=== PATIENT | female | born 1965 | race Caucasian/White ===

== ENCOUNTER → 2018-03-25 16:38 | Outpatient (CLI) | payer OTHER, SELFPAY ==
--- NOTE | 2018-03-25 16:45 | MM_ITS ---
MM Dig screening mamm BI w/CAD CAD Screening ORDERING PHYSICIAN : Blanquita Kim PATIENT AGE: 52 years GENDER: Female INDICATION: Routine screening, no hormones no new complaints noncontributory family history. COMPARISON: Outside bilateral mammogram studies [facility] October TECHNIQUE: Standard CC and MLO images were obtained. R2 CAD reviewed. FINDINGS: Low-density breast with fatty replacement bilaterally No interval change. No new areas of significant concern. No dominant mass nor suspicious calcification. A few scattered benign appearing punctate calcifications bilaterally not of concern Bilateral annual follow-up recommended ---IMPRESSION: --- Low-density breast. No areas of concern . Bilateral follow-up in one year recommended BI-RADS Category: 1 Negative RECOMMENDED FOLLOW-UP: 1YR - 1 YEAR FOLLOW-UP (A letter has been sent to the patient regarding results of the study.)
== END ==
PROVIDERS: Family Provider Nurse Practitioner Family; PCP Nurse Practitioner Family; Visit Provider Nurse Practitioner Family
DX: Z12.31 Encounter for screening mammogram for malignant neoplasm of breast (principal)
CPT/HCPCS: 77067

== ENCOUNTER → 2018-05-30 10:17 | Outpatient (POV) | payer OTHER, SELFPAY ==
[2018-05-30 10:33] VITALS: BP 139/95; PULSE 88; RESP 18; O2SAT 98
--- NOTE | 2018-05-30 12:40 | HMH.PMCON ---
Assessment and Plan (1) Knee pain, bilateral Current visit: Yes Status: Chronic Category: Medical Code(s): M25.561 - Pain in right knee; M25.562 - Pain in left knee (2) Back pain Current visit: Yes Status: Chronic Category: Medical Code(s): M54.9 - Dorsalgia, unspecified (3) Neck pain Current visit: Yes Status: Chronic Category: Medical Code(s): M54.2 - Cervicalgia - Assessment and plan all Dx Assessment and Plan for all problems:: I gave the patient information on neuro stimulation. We discussed the trialing and implantation process. Patient is good to take the information home and review it. 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 I also discussed with the patient that we would be more than happy to set up a second opinion in regards to her bilateral knee pain. This note was dictated using voice recognition software and may contain errors or omissions HPI - Data of Consult Consult date: 05/30/18 Requesting Physician: Zoe Powell APRN Primary Care Provider: Blanquita Kim APRN Family Provider: Blanquita Kim APRN - Consult Narrative Reason for consult: Generalized pain History of present illness: Ms. Sidhu is a 52 year old female who presents for consultation in regards to her neurolyse pain. She states that her entire body hurts from her neck all the way down to her toes. Patient states that walking makes it worse while nothing decreases her pain. Patient states she needs a bilateral knee replacement however she was deemed too young by Dr. French. Patient did have shoulder surgery to repair a torn rotator cuff by Dr. French. Patient states she has numbness and tingling in all of her extremities. Patient states that she has had both Synvisc, rooster comb, cortisone injections in both her knees with no success. Patient's tried and failed physical therapy along with massage therapy. Patient has tried gabapentin/clonazepam/Cymbalta/Effexor. Patient's currently on gabapentin 800 mg 1 p.o. 3 times daily and clonazepam 0.5 mg by her primary care physician. Patient states that this does not help her pain symptoms. Patient states she did not get a second opinion in regards to her knee pain. Patient is uninterested in a second opinion at this time. Patient states she has cardiological problems and is followed by Dr. Quiroz. Patient and I discussed potential neurostimulation. CC: Zoe Powell APRN [facility] History I have reviewed the patient's past medical history: Yes Medical History: Reports:: Diabetes Mellitus Type 1, Hyperlipidemia, Hypertension Other Medical History: Reports: Arthritis, Glaucoma - *Social History Smoking Status: Never smoker Alcohol Intake: never Occupational Status: other - Psychiatric History Expresses thoughts of harming self/others: None Suicide Plan Description: No Plan *Family Hx:: Unable to obtain Review of Systems - Review of Systems ROS General: no recent weight change, no fever, no sleep disturbances Respiratory: no cough, no shortness of air, no recurring pulmonary infections Cardiovascular/Peripheral Vascular: No chest pain, No palpitations, no edema, no shortness of breath. Gastrointestinal: no incontinence, normal bowel movements reported Genitourinary: no incontinence Musculoskeletal: Generalized pain, bilateral knee pain, neck pain, back pain, bilateral arm pain, bilateral leg pain Psychiatric: normal mood/ affect Neurological: [denies weakness in extremities], [denies balance issues] Meds Allergies Allergy/AdvReac Type Severity Reaction Status Date / Time CONTRAST MEDIA, IODINE Allergy Intermediate I-HIVES Uncoded 11/16/17 15:25 RELATED From MOBIC Allergy Intermediate I-HIVES Uncoded 11/16/17 15:25 From SEAFODD (F/D) Allergy Intermediate I-HIVES Uncoded 11/16/17 15:25 Objective Vital signs: Pulse Resp BP Pulse Ox
--- NOTE | 2018-05-30 12:43 | P.CONS_ITS ---
Assessment and Plan (1) Knee pain, bilateral Current visit: Yes Status: Chronic Category: Medical Code(s): M25.561 - Pain in right knee; M25.562 - Pain in left knee (2) Back pain Current visit: Yes Status: Chronic Category: Medical Code(s): M54.9 - Dorsalgia, unspecified (3) Neck pain Current visit: Yes Status: Chronic Category: Medical Code(s): M54.2 - Cervicalgia - Assessment and plan all Dx Assessment and Plan for all problems:: I gave the patient information on neuro stimulation. We discussed the trialing and implantation process. Patient is good to take the information home and review it. 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 I also discussed with the patient that we would be more than happy to set up a second opinion in regards to her bilateral knee pain. This note was dictated using voice recognition software and may contain errors or omissions HPI - Data of Consult Consult date: 05/30/18 Requesting Physician: Zoe Powell APRN Primary Care Provider: Blanquita Kim APRN Family Provider: Blanquita Kim APRN - Consult Narrative Reason for consult: Generalized pain History of present illness: Ms. Sidhu is a 52 year old female who presents for consultation in regards to her neurolyse pain. She states that her entire body hurts from her neck all the way down to her toes. Patient states that walking makes it worse while nothing decreases her pain. Patient states she needs a bilateral knee replacement however she was deemed too young by Dr. French. Patient did have shoulder surgery to repair a torn rotator cuff by Dr. French. Patient states she has numbness and tingling in all of her extremities. Patient states that she has had both Synvisc, rooster comb, cortisone injections in both her knees with no success. Patient's tried and failed physical therapy along with massage therapy. Patient has tried gabapentin/clonazepam/Cymbalta/Effexor. Patient's currently on gabapentin 800 mg 1 p.o. 3 times daily and clonazepam 0.5 mg by her primary care physician. Patient states that this does not help her pain symptoms. Patient states she did not get a second opinion in regards to her knee pain. Patient is uninterested in a second opinion at this time. Patient states she has cardiological problems and is followed by Dr. Quiroz. Patient and I discussed potential neurostimulation. CC: Zoe Powell APRN [facility] History I have reviewed the patient's past medical history: Yes Medical History: Reports:: Diabetes Mellitus Type 1, Hyperlipidemia, Hypertension Other Medical History: Reports: Arthritis, Glaucoma - *Social History Smoking Status: Never smoker Alcohol Intake: never Occupational Status: other - Psychiatric History Expresses thoughts of harming self/others: None Suicide Plan Description: No Plan *Family Hx:: Unable to obtain Review of Systems - Review of Systems ROS General: no recent weight change, no fever, no sleep disturbances Respiratory: no cough, no shortness of air, no recurring pulmonary infections Cardiovascular/Peripheral Vascular: No chest pain, No palpitations, no edema, no shortness of breath. Gastrointestinal: no incontinence, normal bowel movements reported Genitourinary: no incontinence Musculoskeletal: Generalized pain, bilateral knee pain, neck pain, back pain, bilateral arm pain, bilateral leg pain Psychiatric: normal mood/ affect Neurological: [denies weakness in extremities], [d
== END ==
PROVIDERS: Family Provider Nurse Practitioner Family; PCP Nurse Practitioner Family; Visit Provider Clinical Nurse Specialist Family Health
DX: M25.561 Pain in right knee (principal); M25.562 Pain in left knee; M54.9 Dorsalgia, unspecified; M54.2 Cervicalgia
CPT/HCPCS: 99202

== ENCOUNTER → 2018-07-13 08:10 | Outpatient (CLI) | payer OTHER, SELFPAY ==
--- NOTE | 2018-07-13 08:12 | US_ITS ---
US abdomen complete HISTORY: Right-sided abdominal pain ITS.REASON: ABD PAIN ORDERING PHYSICIAN: Blanquita Kim PATIENT AGE: 52 years COMPARISON: None FINDINGS: PANCREAS:Unremarkable. No obvious mass or abnormal fluid collection. No ductal dilatation LIVER:No focal liver lesions demonstrated. Homogeneous echogenicity. No intrahepatic biliary ductal dilatation evident. There is diffuse increase echogenicity of the liver was performed through transmission of sound consistent with fatty liver. RIGHT KIDNEY:Unremarkable. Normal size and echogenicity. No hydronephrosis LEFT KIDNEY:Unremarkable. No hydronephrosis. Normal size and echogenicity. GALLBLADDER: Status post cholecystectomy. No ductal dilatation SPLEEN:Unremarkable. Normal size and echogenicity ASCITES:None demonstrated. IMPRESSION: Status post cholecystectomy. No ductal dilatation. Fatty liver
== END ==
PROVIDERS: Family Provider Nurse Practitioner Family; PCP Nurse Practitioner Family; Visit Provider Nurse Practitioner Family
DX: R10.11 Right upper quadrant pain (principal)
CPT/HCPCS: 76700

== ENCOUNTER → 2018-08-04 17:46 | Outpatient (CLI) | payer OTHER, SELFPAY ==
--- NOTE | 2018-08-04 17:54 | XR_ITS ---
XR ribs BI min 4V w CXR1V Ordering Physician: Blanquita Kim Patient Age: 52 years: Female HISTORY: ITS.REASON: RIB PAIN TECHNIQUE: Oblique views both ribs. Along with AP chest above and below diaphragm. COMPARISON :2 view chest from April 2009 FINDINGS The ribs appear intact with no fracture evident. No some motion artifact on one or 2 of the oblique images but overall the ribs are adequately visualized and adequate detail. Both right and left ribs appear intact. Loop recorder is projected over lower chest just at and to left of midline. The lungs appear well expanded and clear with nothing definitely acute. On this frontal projection. No pneumothorax. No pleural effusions. Minimal wispy density left lung which appears reflect some minor pleural parenchymal scarring just above the left cardiac apex. This is present previously slightly more evident on today's study IMPRESSION: Negative bilateral ribs. No rib fracture nor lesion evident. Lungs clear with nothing definitely acute.
== END ==
PROVIDERS: PCP Nurse Practitioner Family; Visit Provider Nurse Practitioner Family
DX: R07.2 Precordial pain (principal)
CPT/HCPCS: 71111

== ENCOUNTER → 2019-04-20 10:03 | Outpatient (CLI) | payer OTHER, SELFPAY ==
--- NOTE | 2019-04-20 10:06 | MM_ITS ---
MM Dig screening mamm BI w/CAD ORDERING PHYSICIAN : Blanquita Kim APRN PATIENT AGE: 53 years GENDER: Female COMPARISON: February 20182016 and December 2015 bowel mammogram INDICATION: ITS.Routine: SCREENING. No hormones. No new complaints Noncontributory family history TECHNIQUE: Standard CC and MLO images were obtained. R2 CAD reviewed. Additional CC nipple profile views bilaterally included FINDINGS: Low-density breast with generalized fatty replacement. Minimal residual fibroglandular elements. Bilaterally with no dominant mass no suspicious calcifications. Stable minor areas of asymmetry. RIGHT BREAST:No areas of significant concern. Scattered benign punctate calcifications. Follow-up in one year. LEFT BREAST: No significant new findings Small faint 5 mm area of nodularity medial left breast is fairly stable. Is been present since at least 2013. IMPRESSION: Stable bilateral mammogram with no significant new findings. Follow-up in one year recommended. BI-RADS Category: 1 Negative RECOMMENDED FOLLOW-UP: 1YR 1 YEAR FOLLOW-UP (A letter has been sent to the patient regarding results of the study.)
== END ==
PROVIDERS: PCP Nurse Practitioner Family; Visit Provider Nurse Practitioner Family
DX: Z12.31 Encounter for screening mammogram for malignant neoplasm of breast (principal)
CPT/HCPCS: 77067

== ENCOUNTER → 2020-04-23 15:54 | Outpatient (CLI) | payer MEDICARE, OTHER, SELFPAY ==
--- NOTE | 2020-04-23 16:08 | MM_ITS ---
PROCEDURE: MM DIG SCREENING MAMM BI W/CAD Digital Breast Tomosynthesis Included CLINICAL INDICATION: SCREENING There is a history of breast cancer in the patient's 2 maternal aunts. COMPARISON: Screening-Bilateral Mammography from 03/19/2017 [facility] MM Dig screening mamm BI w/CAD from 03/25/2018 DIG MAMM-SCREEN ANIYA from 04/20/2019 TECHNIQUE: Standard CC and MLO images and 3D Tomosynthesis was obtained. R2 CAD reviewed. FINDINGS: There are few benign-appearing microcalcifications in each breast. There is an apparent loop recorder device projecting over the inner quadrant left breast near the cleavage. There is a stable tiny nodular density inner quadrant left breast with benign features. There is no suspicious lesion and no suspicious microcalcifications. IMPRESSION: Fatty type breast parenchyma with no suspicious lesions seen BI-RAD Category: 2 Benign Finding(s) FOLLOW-UP: 1YR 1 Year Follow-up (A letter has been sent to the patient regarding results of the study.) Dictated by: Dr. Kyrie Funes MD 04/25/2020 14:[address] Kyrie Funes MD in [place] 04/25/2020 14:58
== END ==
PROVIDERS: PCP Nurse Practitioner Family; Visit Provider Nurse Practitioner Family
DX: Z12.31 Encounter for screening mammogram for malignant neoplasm of breast (principal)
CPT/HCPCS: 77063; 77067

== ENCOUNTER → 2021-05-19 15:41 | Outpatient (CLI) | payer MEDICARE, OTHER, SELFPAY ==
--- NOTE | 2021-05-19 15:45 | MM_ITS ---
PROCEDURE: MM DIG SCREENING MAMM BI W/CAD Digital Breast Tomosynthesis Included CLINICAL INDICATION: SCREENING There is a history of breast cancer patient's 2 maternal aunts. COMPARISON: MG [facility] MM Dig screening mamm BI w/CAD from 03/25/2018 MG DIG MAMM-SCREEN ANIYA from 04/20/2019 MG MM DIG SCREENING MAMM BI W/CAD from 04/23/2020 TECHNIQUE: Standard CC and MLO images and 3D Tomosynthesis was obtained. R2 CAD reviewed. FINDINGS: Breasts are composed primarily of minimal scattered fibroglandular densities throughout each breast. There are few scattered benign-appearing microcalcifications in each breast. There are stable slightly asymmetric glandular elements just above the nipple right breast. There is a stable faint benign-appearing nodular density inner quadrant left breast. There is no new or suspicious lesion in either breast and no suspicious microcalcifications. IMPRESSION: Fibrofatty parenchyma with no suspicious lesions seen BI-RAD Category: 2 Benign Finding(s) FOLLOW-UP: 1YR 1 Year Follow-up (A letter has been sent to the patient regarding results of the study.) Dictated by: Dr. Kyrie Funes MD 05/21/2021 15:16 Dr. Kyrie Funes MD in [place] 05/21/2021 15:16
== END ==
PROVIDERS: PCP Nurse Practitioner Family; Visit Provider Nurse Practitioner Family
DX: Z12.31 Encounter for screening mammogram for malignant neoplasm of breast (principal)
CPT/HCPCS: 77063; 77067

== ENCOUNTER → 2022-05-28 11:57 | Outpatient (CLI) | payer MEDICARE, OTHER, SELFPAY ==
--- NOTE | 2022-05-28 12:01 | MM_ITS ---
PROCEDURE INFORMATION: Exam: MG Bilateral Screening 3D Mammography Exam date and time: 05/28/2022 12:58 PM Age: 56 years old Clinical indication: Screening examination TECHNIQUE: Imaging protocol: Bilateral Screening tomosynthesis and 2D mammography including computer-aided detection (CAD) when performed. COMPARISON: 1. MG MM DIG SCREENING MAMM BI W/CAD 05/19/2021 3:56 PM 2. MG MM DIG SCREENING MAMM BI W/CAD 04/23/2020 4:14 PM FINDINGS: MAMMOGRAPHY: Breast composition: There are scattered areas of fibroglandular density. Mass: None. Architectural distortion: None. Calcifications: No suspicious calcifications. Asymmetric density: None. Skin thickening: None. Axillary adenopathy: None. IMPRESSION: No mammographic evidence of malignancy. Annual screening is recommended unless otherwise clinically indicated. ASSESSMENT: BI-RADS Category 1: Negative
== END ==
PROVIDERS: PCP Nurse Practitioner Family; Visit Provider Nurse Practitioner Family
DX: Z12.31 Encounter for screening mammogram for malignant neoplasm of breast (principal)
CPT/HCPCS: 77063; 77067

== ENCOUNTER → 2023-06-23 09:53 | Outpatient (CLI) | payer MEDICARE, MEDICAID, SELFPAY ==
--- NOTE | 2023-06-23 09:57 | MM_ITS ---
PROCEDURE INFORMATION: Exam: MG Bilateral Screening 3D Mammography Exam date and time: 06/23/2023 9:49 AM Age: 57 years old Clinical indication: Screening examination TECHNIQUE: Imaging protocol: Bilateral Screening tomosynthesis and 2D mammography including computer-aided detection (CAD) when performed. COMPARISON: 1. MG MM DIG SCREENING MAMM BI W/CAD 05/28/2022 12:58 PM 2. MG MM DIG SCREENING MAMM BI W/CAD 05/19/2021 3:56 PM FINDINGS: MAMMOGRAPHY: Breast composition: There are scattered areas of fibroglandular density. Mass: None. Architectural distortion: None. Calcifications: No suspicious calcifications. Asymmetric density: None. Skin thickening: None. Axillary adenopathy: None. IMPRESSION: No mammographic evidence of malignancy. Annual screening is recommended unless otherwise clinically indicated. ASSESSMENT: BI-RADS Category 1: Negative
== END ==
PROVIDERS: PCP Nurse Practitioner Family; Visit Provider Nurse Practitioner Family
DX: Z12.31 Encounter for screening mammogram for malignant neoplasm of breast (principal)
CPT/HCPCS: 77063; 77067

== ENCOUNTER 2024-06-26 12:51 | Outpatient (CLI) | payer MEDICARE, MEDICAID, SELFPAY ==
--- NOTE | 2024-06-26 12:56 | MM_ITS ---
PROCEDURE INFORMATION: Exam: MG Bilateral Screening 3D Mammography Exam date and time: 06/26/2024 12:44 PM Age: 58 years old Clinical indication: Screening examination TECHNIQUE: Imaging protocol: Bilateral Screening tomosynthesis and 2D mammography including computer-aided detection (CAD) when performed. COMPARISON: 1. MG MM DIG SCREENING MAMM BI W/CAD 06/23/2023 9:49 AM 2. MG MM DIG SCREENING MAMM BI W/CAD 05/28/2022 12:58 PM 3. MG MM DIG SCREENING MAMM BI W/CAD 05/19/2021 3:56 PM FINDINGS: MAMMOGRAPHY: Breast composition: There are scattered areas of fibroglandular density. Mass: No suspicious masses. Architectural distortion: No suspicious distortion. Calcifications: No suspicious calcifications. Asymmetric density: None. Skin thickening: None. Axillary adenopathy: None. IMPRESSION: No mammographic evidence of malignancy. Annual screening is recommended unless otherwise clinically indicated. ASSESSMENT: BI-RADS Category 1: Negative
== END 2024-06-26 23:59 | disposition home or self-care (01) ==
LOC: RAD 12:51
PROVIDERS: PCP Nurse Practitioner Family; Visit Provider Nurse Practitioner Family
DX: Z12.31 Encounter for screening mammogram for malignant neoplasm of breast (principal)
CPT/HCPCS: 77063; 77067

== ENCOUNTER 2025-08-29 10:24 | Outpatient (CLI) | payer MEDICARE, MEDICAID, SELFPAY ==
--- OUTSIDE RECORDS SUMMARY | 2025-08-17 09:30 | XMS_ITS | Encounter Summary ---
Author Organization [facility] Address [address] [place] [id number] Care Team Providers Care Mail Caller Name Role Phone Valentine Huntley APRN Primary Care Provider [phone] Reason for Visit * Reason Comments Sleep Apnea Results Titration Encounter Details Date Type Department Care Team (Late st Contact Info) Description 08/17/2025 9:30 AM EDT Office Visit [facility] [address] [place] [address] An Reyez APRN [address] [place], [place] [id number] Obstructive sleep apnea (Primary Dx); Mild CAD; Primary hypertension Social History Tobacco Use Types Packs/Day Years Used Date Smoking Tobacco: Never Passive Smoke Exposure: Never Smokeless Tobacco: Never Tobacco Cessation:Counseling Given: No Alcohol Use Standard Drinks/Week Comments Not Currently 0 (1 standard drink = 0.6 oz pur e alcohol) Comments Unknown Sex and Gender Information Value Date Recorded Sex Assigned at Female 05/02/2025 10:27 AM EDT Legal Sex Female 9:40 AM EST Gender Identity Not on file Sexual Orientation Lesbian or Bates 05/02/2025 10 :27 AM EDT documented as of this encounter Last Filed Vital Signs Vital Sign Reading Time Taken Comments Blood Pressure 132/70 08/17/2025 8:59 AM EDT Pulse 81 08/17/2025 8:59 AM EDT Temperature - - Respiratory Rate - - Oxygen Saturation 94% 08/17/2025 8:59 AM EDT Inhaled Oxygen Concentration - - Weight 101 kg (223 lb 3.2 oz) 08/17/2025 8:59 AM EDT Height 157.5 cm (5' 2 ) 08/17/2025 8:59 AM EDT Body Mass Index 40.82 08/17/2025 8:59 AM EDT documented in this encounter Progress Notes * An Reyez APRN - 08/17/2025 9:48 AM EDTAssociated Problem(s): Hypertension Hypertension is stable and controlled Continue current treatment regimen. Dietary sodium restriction. Weight loss. Regular aerobic exercise. Ambulatory blood pressure monitoring. Blood pressure will be reassessed at next scheduled follow-up. * An Reyez APRN - 08/17/2025 9:47 AM EDTAssociated Problem(s): Obstructive sleep apnea Patient has a baseline AHI of 22 that increases to 147 in REM sleep this is moderate to severe sleep apnea. Patient states she just did her titration study last night and the results have not come back. Download shows suboptimal compliance with suboptimal control. Patient states that she is sleeping well. Mask fit is comfortable. Plan to continue current treatment. Follow-up in 8 weeks or sooner for any DORIAN or PAP concerns. * An Reyez APRN - 08/17/2025 9:46 AM EDTAssociated Problem(s): Mild CAD Coronary artery disease is stable. Continue current treatment regimen. Dietary sodium restriction. Weight loss. Regular aerobic exercise. Cardiac status will be reassessed at the next regular appointment. Patient to continue her aspirin, atorvastatin, clopidogrel, and gemfibrozil. * An Reyez APRN - 08/17/2025 9:30 AM EDT Images from the original note were not included. [facility] Provider Note Date: 08/17/2025 Name: Ly Sidhu : 1965 PCP: Valentine Huntley APRN Chief Complaint Patient presents with ??? Sleep Apnea ??? Results Titration Subjective History of Present Illness Ly Sidhu is a 59 y.o. female who presents today for 5 low up titration study. Patient states that she just did her titration study last night. Results are not back and cannot bereviewed with patient. Patient states that she really likes her BiPAP but sometimes feels like the pressure is not enough and then sometimes it feels like it is smothering. Mask fit is comfortable. Patient states that she has been doing overall very well. She reports that she has had a lot of family health issues that have been stressful. Patient has no significant CV complaints today. Blood pressure is well-controlled 132/70. She denies any exertional chest pain, shortness of breath, palpitations, presyncope, or syncope. She states that she continues to have lower extremity edema that is controlled with her hydrochlorothiazide. History of Present Illness Cardiac history 1. Mild CAD on [facility] from 2017 2. Hypertension 3. Diabetes 4. TIAs on aspirin and Plavix 5. DORIAN- PSG 07/15/17 Baseline AHI 22/REM 147. Titration study 10/05/19 titrated to Bipap 20/14 PS 4. Current settings: Abipap 20/12 Nuclear stress test 10-30-24-small apical fixed defect. This is either small scarring or thinning artifact. Low risk study. Echocardiogram 07/13/2024-normal LV size and function. No significant valvular abnormalities. Left heart cath from 2017 revealed mild coronary artery atherosclerosis. Reports Denies Chest Pain [] [x] Shortness of Air [] [x] Palpitations [] [x] Edema [x] [] Dizziness [] [x] Syncope [] [x] Current mask used is FFM Device Functioning Well: Yes Mask Fit Comfortable: Yes Air Flow Comfortable: No, Sensation of smothering with air flow and just did titration last night and results are not back DME Helpful for Supplies: Yes Sleep is rested: Yes Device Download: Allergies Allergen Reactions ??? Shellfish Allergy Unknown - Low Severity ??? Contrast Dye (Echo Or Unknown Ct/Mr) Rash ??? Iodinated Contrast Media Rash ??? Mobic [Meloxicam] Rash Current Outpatient Medications: ??? amLODIPine (NORVASC) 5 MG tablet, Take 1 tablet by mouth Daily., Disp: , Rfl: ??? Aspirin Low Dose 81 MG EC tablet, Take 1 tablet by mouth Daily., Disp: , Rfl: ??? atorvastatin (LIPITOR) 20 MG tablet, Take 1 tablet by mouth every night at bedtime., Disp: , Rfl: ??? buPROPion XL (WELLBUTRIN XL) 300 MG 24 hr tablet, Take 1 tablet by mouth Every Morning., Disp: , Rfl: ??? cetirizine (zyrTEC) 10 MG tablet, Take 1 tablet by mouth Daily., Disp: , Rfl: ??? clonazePAM (KlonoPIN) 0.5 MG tablet, Take 0.5 tablets by mouth 3 (Three) Times a Day As Needed for Seizures., Disp: , Rfl: ??? clopidogrel (PLAVIX) 75 MG tablet, Take 1 tablet by mouth Daily., Disp: , Rfl: ??? Continuous Glucose Rug Hooker Hand (Dexcom G7 Rug Hooker Hand) device, See Admin Instructions., Disp: , Rfl: ??? Continuous Glucose Sensor (Dexcom G7 Sensor) [facility], Use as directed AND REPLACE EVERY 10 DAYS., Disp: , Rfl: ??? Dulera 100-5 MCG/ACT inhaler, Inhale 2 puffs 2 (Two) Times a Day., Disp: , Rfl: ??? folic acid (FOLVITE) 1 MG tablet, Take 1 tablet by mouth Daily., Disp: , Rfl: ??? gabapentin (NEURONTIN) 800 MG tablet, Take 1 tablet by mouth 3 (Three) Times a Day., Disp: , Rfl: ??? gemfibrozil (LOPID) 600 MG tablet, Take 1 tablet by mouth 2 (Two) Times a Day Before Meals., Disp: , Rfl: ??? hydrochlorothiazide (HYDRODIURIL) 25 MG tablet, Take 1 tablet by mouth Daily., Disp: , Rfl: ??? Jardiance 10 MG tablet tablet, Take 1 tablet by mouth Daily., Disp: , Rfl: ??? Lantus SoloStar 100 UNIT/ML injection pen, Inject under the skin into the appropriate area as directed., Disp: , Rfl: ??? levothyroxine (SYNTHROID, LEVOTHROID) 100 MCG tablet, Take 1 tablet by mouth Every Morning., Disp: , Rfl: ??? metoprolol succinate XL (TOPROL-XL) 100 MG 24 hr tablet, Take 1 tablet by mouth Daily., Disp: ,Rfl: ??? omeprazole (priLOSEC) 20 MG capsule, Take 1 capsule by mouth 2 (Two) Times a Day With Meals., Disp: , Rfl: ??? Ozempic, 1 MG/DOSE, 4 MG/3ML solution pen-injector, Inject 1 mg under the skin into the appropriate area as directed 1 (One) Time Per Week., Disp: , Rfl: ??? traZODone (DESYREL) 100 MG tablet, Take 1 tablet by mouth Every Night., Disp: , Rfl: ??? venlafaxine (EFFEXOR) 75 MG tablet, Take 3 tablets by mouth Daily., Disp: , Rfl: ??? venlafaxine XR (EFFEXOR-XR) 150 MG 24 hr capsule, Take 225 mg by mouth Daily., Disp: , Rfl: ??? vitamin D (ERGOCALCIFEROL) 1.25 MG (84332 UT) capsule capsule, Take 1 capsule by mouth 1 (One) Time Per Week., Disp: , Rfl: Past Medical History: Diagnosis Date ??? Aortic aneurysm ??? Bipolar disorder, unspecified ??? COPD (chronic obstructive pulmonary disease) ??? Diabetes mellitus ??? Folate-deficiency anemia ??? Hyperlipidemia ??? Hypertension ??? Idiopathic generalized epilepsy ??? Insomnia related to another mental disorder ??? Magnesium deficiency ??? Posttraumatic stress disorder ??? Stroke ??? Syncope ??? Vitamin D deficiency Past Surgical History: Procedure Laterality Date ??? KNEE ACL RECONSTRUCTION Right ??? LAPAROSCOPIC APPENDECTOMY ??? LAPAROSCOPIC CHOLECYSTECTOMY 2014 ??? ROTATOR CUFF REPAIR Right 2005 ??? TONSILLECTOMY AND ADENOIDECTOMY Family History Problem Relation Age of Onset ??? Stroke Mother ??? Heart attack Father ??? Heart attack Sister ??? Stroke Sister ??? Heart attack Brother ??? Heart disease Brother ??? Heart attack Sister ??? Heart attack Sister ??? Heart failure Brother ??? Heart disease Brother ??? Arrhythmia Brother Social History Socioeconomic History ??? Marital status: Single Tobacco Use ??? Smoking status: Never Passive exposure: Never ??? Smokeless tobacco: Never Vaping Use ??? Vaping status: Never Used Substance and Sexual Activity ??? Alcohol use: Not Currently ??? Drug use: Not Currently ??? Sexual activity: Defer Objective Vital Signs: BP 132/70 (BP Location: Right arm, Patient Position: Sitting, Cuff Size: Large Adult) Pulse 81 Ht 157.5 cm (62 ) Wt 101 kg (223 lb 3.2 oz) SpO2 94% BMI 40.82 kg/m?? Estimated body mass index is 40.82 kg/m?? as calculated from the following: Height as of this encounter: 157.5 cm (62 ). Weight as of this encounter: 101 kg (223 lb 3.2 oz). Physical Exam Constitutional: Appearance: Normal appearance. She is obese. Cardiovascular: Rate and Rhythm: Normal rate and regular rhythm. Pulses: Normal pulses. Heart sounds: Normal heart sounds. Pulmonary: Effort: Pulmonary effort is normal. Breath sounds: Normal breath sounds. Musculoskeletal: General: Normal range of motion. Right lower leg: Edema present. Left lower leg: Edema present. Skin: General: Skin is warm and dry. Capillary Refill: Capillary refill takes less than 2 seconds. Neurological: General: No focal deficit present. Mental Status: She is alert and oriented to person, place, and time. Psychiatric: Mood and Affect: Mood normal. Behavior: Behavior normal. Thought Content: Thought content normal. Judgment: Judgment normal. The following data was reviewed by: An Reyez APRN on 08/17/2025: Results Assessment and Plan Diagnoses and all orders for this visit: 1. Obstructive sleep apnea (Primary) Assessment & Plan: Patient has a baseline AHI of 22 that increases to 147 in REM sleep this is moderate to severe sleep apnea. Patient states she just did her titration study last night and the results have not come back. Download shows suboptimal compliance with suboptimal control. Patient states that she is sleeping well. Mask fit is comfortable. Plan to continue current treatment. Follow-up in 8 weeks or sooner for any DORIAN or PAP concerns. 2. Mild CAD Assessment & Plan: Coronary artery disease is stable. Continue current treatment regimen. Dietary sodium restriction. Weight loss. Regular aerobic exercise. Cardiac status will be reassessed at the next regular appointment. Patient to continue her aspirin, atorvastatin, clopidogrel, and gemfibrozil. 3. Primary hypertension Assessment & Plan: Hypertension is stable and controlled Continue current treatment regimen. Dietary sodium restriction. Weight loss. Regular aerobic exercise. Ambulatory blood pressure monitoring. Blood pressure will be reassessed at next scheduled follow-up. Recommendations: ER if symptoms increase, Report if any new/changing symptoms immediately, Limit salt, Elevate legs, Compression hose, Limit caffeine, Sleep risks reviewed (driving, medical, sleep , sedating agents), Sleep hygiene discussed, and Increase pap therapy usage Follow Up Return in about 8 weeks (around 10/12/2025) for Pressure change. Patient was given instructions and counseling regarding her condition or for health maintenance advice. Please see specific information pulled into the AVS if appropriate. documented in this encounter Plan of Treatment Upcoming Encounters Date Type Department Care Team (Late st Contact Info) Description 10/18/2025 11:00 AM EST Office Visit [facility] [address] [place] [id number] An Reyez APRN [address] [place] [address] [place] [address] documented as of this encounter Visit Diagnoses Diagnosis Obstructive sleep apnea- Primary Obstructive sleep apnea (adult) (pediatric) Mild CAD Primary hypertension Unspecified essential hypertension documented in this encounter Care Teams Mail Caller Relationship Specialty Start Date End Date Valentine Huntley APRN [address] [place] [phone] PCP - General Nurse Practitioner 07/26/24 documented as of this encounter
--- NOTE | 2025-08-29 10:29 | MM_ITS ---
PROCEDURE INFORMATION: Exam: MG Bilateral Screening 3D Mammography Exam date and time: 08/29/2025 10:34 AM Age: 59 years old Clinical indication: Screening examination TECHNIQUE: Imaging protocol: Bilateral Screening tomosynthesis and 2D mammography including computer-aided detection (CAD) when performed. COMPARISON: MG MM DIG SCREENING MAMM BI W/CAD 06/26/2024 12:44 PM FINDINGS: MAMMOGRAPHY: Breast composition: There are scattered areas of fibroglandular density. Mass: No suspicious masses. Architectural distortion: None. Calcifications: No suspicious calcifications. Asymmetric density: None. Skin thickening: None. Axillary adenopathy: None. IMPRESSION: No mammographic evidence of malignancy. Annual screening is recommended unless otherwise clinically indicated. ASSESSMENT: BI-RADS Category 1: Negative.
--- OUTSIDE RECORDS SUMMARY | 2025-08-29 10:55 | XMS_ITS | Clinical Summary ---
Author Organization [facility] Address [address] [place] [phone] Care Team Providers Care Cna Name Role Phone Valentine Huntley APRN Primary Care Provider [phone] Allergies Active Allergy Reactions Criticality Noted Date Comments Contrast Dye (Echo Or Unknow n Ct/Mr) Rash Low 11/17/2017 Iodinated Contrast Media Rash Low 05/26/2019 Meloxicam Rash Low 11/17/2017 Shellfish Allergy Unknown - Low Severity 2018 Medications clonazePAM (KlonoPIN) 0.5 MG tablet Take 0.5 tablets by mouth 3 (Three) Times a Day As Needed for Seizures. Active amLODIPine (NORVASC) 5 MG tablet Take 1 tablet by mouth Daily. Active venlafaxine XR (EFFEXOR-XR) 150 MG 24 hr capsule Take 225 mg by mouth Daily. Active clopidogrel (PLAVIX) 75 MG tablet Take 1 tablet by mouth Daily. Active hydrochlorothi azide (HYDRODIURIL) 25 MG tablet Take 1 tablet by mouth Daily. Active gemfibrozil (LOPID) 600 MG tablet Take 1 tablet by mouth 2 (Two) Times a Day Before Meals. Active gabapentin (NEURONTIN) 800 MG tablet Take 1 tablet by mouth 3 (Three) Times a Day. Active cetirizine (zyrTEC) 10 MG tablet Take 1 tablet by mouth Daily. Active Aspirin Low Dose 81 MG EC tablet Take 1 tablet by mouth Daily. 4 Active buPROPion XL (WELLBUTRIN XL) 300 MG 24 hr tablet Take 1 tablet by mouth Every Morning. 4 Active Continuous Glucose Straight Knife Cutter Machine (Beamlycom G7 Straight Knife Cutter Machine) device See Admin Instructions. 4 Active Continuous Glucose Sensor (Dexcom G7 Sensor) [facility] Use as directed AND REPLACE EVERY 10 DAYS. 4 Active vitamin D (ERGOCALCIFERO L) 1.25 MG (59060 UT) capsule capsule Take 1 capsule by mouth 1 (One) Time Per Week. 4 Active folic acid (FOLVITE) 1 MG tablet Take 1 tablet by mouth Daily. 4 Active atorvastatin (LIPITOR) 20 MG tablet Take 1 tablet by mouth every night at bedtime. 4 Active levothyroxine (SYNTHROID, LEVOTHROID) 100 MCG tablet Take 1 tablet by mouth Every Morning. 4 Active omeprazole (priLOSEC) 20 MG capsule Take 1 capsule by mouth 2 (Two) Times a Day With Meals. 4 Active traZODone (DESYREL) 100 MG tablet Take 1 tablet by mouth Every Night. 4 Active Dulera 100-5 MCG/ACT inhaler Inhale 2 puffs 2 (Two) Times a Day. 4 Active venlafaxine (EFFEXOR) 75 MG tablet Take 3 tablets by mouth Daily. 4 Active Jardiance 10 MG tablet tablet Take 1 tablet by mouth Daily. 5 Active Ozempic, 1 MG/DOSE, 4 MG/3ML solution pen-injector Inject 1 mg under the skin into the appropriate area as directed 1 (One) Time Per Week. 5 Active metoprolol succinate XL (TOPROL-XL) 100 MG 24 hr tablet Take 1 tablet by mouth Daily. 5 Active Lantus SoloStar 100 UNIT/ML injection pen Inject under the skin into the appropriate area as directed. 5 Active tiZANidine (ZANAFLEX) 4 MG tablet Take 1 tablet by mouth At Night As Needed for Muscle Spasms (1 to 2 at bedtime). 08/17/20 25 Discontin ued(*Ther apy completed ) Active Problems Problem Noted Date Diagnosed Date Obstructive sleep apnea 05/04/2025 Assessment & Plan (08/17/2025 9:49 AM EDT): Patient has a baseline AHI of 22 [...] sooner for any DORIAN or PAP concerns. Assessment & Plan (06/29/2025 4:19 PM EDT): Patient has a baseline AHI 22 that increases to 147 in REM sleep. This is moderate to severe sleep apnea. Patient's last titration 10/05/2019 she titrated to BiPAP 20/14. Download today shows good compliance with suboptimal control. There were centrals noted on her BiPAP download. Patient reports mask fit and airflow are comfortable. She reports that she is sleeping well with her BiPAP therapy. Plan titration study to consider BiPAP to BiPAP ST. Follow-up in 6 weeks Assessment & Plan (05/04/2025 11:05 AM EDT): She has a history of DORIAN with BiPAP therapy. Her recalled device was sent to [facility] [employer] several years ago but she was never sent a replacement device. She is requesting to restart PAP therapy at this time. -Restart PAP therapy, ResMed device-keep current pressure settings - Follow-up in 2 months for an DORIAN compliance visit Mild CAD 05/04/2025 Assessment & Plan (08/17/2025 9:46 AM EDT): Coronary artery disease is stable. Continue current treatment regimen. Dietary sodium restriction. Weight loss. Regular aerobic exercise. Cardiac status will be reassessed at the next regular appointment. Patient to continue her aspirin, atorvastatin, clopidogrel, and gemfibrozil. Assessment & Plan (06/29/2025 4:26 PM EDT): Left heart cath from 2017 revealed mild coronary artery atherosclerosis. Lipid panel from 04/17/2025 revealed a total cholesterol of 127, triglycerides 90, HDL 43 and LDL 67. LDL is currently at goal (<70). Continue aspirin, atorvastatin, Plavix, and gemfibrozil. Assessment & Plan (05/04/2025 11:04 AM EDT): Left heart cath from 2017 revealed mild coronary artery atherosclerosis. Lipid panel from 04/17/2025 revealed a total cholesterol of 127, triglycerides 90, HDL 43 and LDL 67. LDL is currently at goal (<70). - Continue aspirin, atorvastatin and metoprolol at current doses Preoperative cardiovascular examination 10/11/20 Assessment & Plan (11/03/2024 1:00 PM EST): She completed a nuclear stress test on 10-30-24 that revealed small apical fixed defect, this is either small scarring or thinning artifact. Low risk study. Patient may proceed with surgery at low risk. No further testing needed at this time. Okay to hold aspirin and plavix 5 days prior to surgery and restart as soon as possible Assessment & Plan (10/11/2024 2:53 PM EST): She has multiple cardiac risk factors including hypertension, hyperlipidemia, obesity, diabetes and family history of premature CAD - Nuclear stress test prior to surgery clearance. Unable to walk on treadmill due to right knee pain Precordial chest pain 10/11/2024 Assessment & Plan (10/11/2024 2:53 PM EST): Intermittent episodes of exertional chest pain relieved with rest. - Proceed with stress test to rule out ischemia Hypertension Assessment & Plan (08/17/2025 9:48 AM EDT): Hypertension is stable and controlled Continue current treatment regimen. Dietary sodium restriction. Weight loss. Regular aerobic exercise. Ambulatory blood pressure monitoring. Blood pressure will be reassessed at next scheduled follow-up. Assessment & Plan (06/29/2025 4:20 PM EDT): Hypertension is stable and controlled Continue current treatment regimen. Blood pressure will be reassessed see next week's. Continue amlodipine, hydrochlorothiazide, and metoprolol Assessment & Plan (05/04/2025 11:02 AM EDT): Hypertension is stable and controlled. It is elevated today due to significant knee pain from recent knee replacement surgery. It has been stable at home prior to surgery. Continue current treatment regimen. Dietary sodium restriction. Weight loss. Blood pressure will be reassessed in 6 month - Continue current medications - Continue monitoring blood pressure closely at home Assessment & Plan (11/03/2024 12:57 PM EST): Hypertension is stable and controlled Continue current treatment regimen. Dietary sodium restriction. Weight loss. Blood pressure will be reassessed in 6 month Assessment & Plan (10/11/2024 2:52 PM EST): Hypertension is stable and controlled Continue current treatment regimen. Dietary sodium restriction. Weight loss. Blood pressure will be reassessed in 6 months. Encounters Date Type Department Care Team Description 08/24/2025 Results Follow-Up [facility] [address] [place] [phone] Izzy Wilks MA 08/17/2025 9:30 AM EDT Office Visit [facility] [address] [place] [phone] An Reyez APRN Obstructive sleep apnea (Primary Dx); Mild CAD; Primary hypertension 08/17/2025 Travel 07/26/2025 Telephone [facility] [address] [place] [phone] An Reyez APRN [employer] - CALL BACK 06/29/2025 9:30 AM EDT Office Visit [facility] [address] [place] [phone] An Reyez APRN Primary hypertension (Primary Dx); Obstructive sleep apnea; Mild CAD 06/29/2025 Travel from Last 3 Months Family History Medical History Relation Name Comments Heart attack Brother 1 Heart disease Brother 1 Arrhythmia Brother 3 Heart disease Brother 3 Heart failure Brother 3 Heart attack Father Stroke Mother Heart attack Sister 1 Stroke Sister 1 Heart attack Sister 2 Heart attack Sister 3 Relation Name Status Comments Brother 1 Alive Brother 2 Brother 3 Alive Father Mother Sister 1 Sister 2 Sister 3 Social History Tobacco Use Types Packs/Day Years [...] or Bates 05/02/2025 10 :27 AM EDT Last Filed Vital Signs Vital Sign Reading [...] Mass Index 40.82 08/17/2025 8:59 AM EDT Plan of Treatment Upcoming Encounters Date Type Department Care Team (Late st Contact Info) Description 10/18/2025 11:00 AM EST Office Visit [facility] [address] [place] [address] An Reyez, [employer] SUPER[employer] [address] [place] [address] [place] [address] Health Maintenance Due Date Last Done Comments Annual Gynecologic Pelvic an d Breast Exam 1967 PAP SMEAR 1988 MAMMOGRAM 2007 COLOGUARD 2012 COLON CANCER SCREENING 5 YEA R SIGMOIDOSCOPY 2012 COLONOSCOPY 2012 [address] CANCER SCREENING 2012 CT COLONOGRAPHY 2012 FECAL OCCULT BLOOD TEST 2012 FIT Testing (1 year) 2012 ZOSTER VACCINE (1 of 2) 2017 ANNUAL WELLNESS VISIT 03/12/2023 HEPATITIS C SCREENING 03/12/2023 Pneumococcal Vaccine 50+ (2 of 2 - PCV) 09/15/2024 09/15/2023, 10/17/2018, 10/17/2016 INFLUENZA VACCINE 06/29/2025 08/28/2024, , 09/04/2022, Additional history exists TDAP/TD VACCINES (6 - Td or Tdap) 08/28/2034 08/28/2024, 01/05/2019, 09/07/2018, Additional history exists Procedures Procedure Name Priority Date/Time Associated Diagnosis Comments SCANNED - PULMONARY RESULTS 08/17/2025 TITRATION Routine 08/16/2025 Obstructive sleep apnea SCANNED - PULMONARY RESULTS 06/22/2025 from Last 3 Months Results * Pulmonary Results Scan (08/17/2025) us An W Seivers [employer] PFT ORDERABLES Final Result * Titration (08/16/2025) us An W Seivers [employer] SUPER[employer] [facility] ORDERABLES Norma l Result * Pulmonary Results Scan (06/22/2025) us An W Seivers [employer] SUPER[employer] PFT ORDERABLES Final Result from Last 3 Months Insurance [employer] MEDICARE ADVANTAGE [facility] HMO Care Teams Cna Relationship Specialty Start Date End Date Valentine Huntley APRN [address] [place] [address] PCP - General Nurse Practitioner 07/26/24
--- OUTSIDE RECORDS SUMMARY | 2025-08-29 10:55 | XMS_ITS | Encounter Summary ---
Author Organization [facility] Address [address] [place] [address] Care Team Providers Care Newspaper Delivery Counselor Name Role Phone Valentine Huntley APRN Primary Care Provider [phone] Encounter Details Date Type Department Care Team (Latest Contact Info) Description 08/17/2025 Travel Social History Tobacco Use Types Packs/Day Years Used Date Smoking Tobacco: Never Passive Smoke Exposure: Never Smokeless Tobacco: Never Alcohol Use Standard Drinks/Week Comments Not Currently 0 (1 standard drink = 0.6 oz pur e alcohol) Comments Unknown Sex and Gender Information Value Date Recorded Sex Assigned at Female 05/02/2025 10:27 AM EDT Legal Sex Female 9:40 AM EST Gender Identity Not on file Sexual Orientation Lesbian or Bates 05/02/2025 10 :27 AM EDT documented as of this encounter Plan of Treatment Upcoming Encounters Date Type Department Care Team (Late st Contact Info) Description 10/18/2025 11:00 AM EST Office Visit [facility] [address] [place] [address] An Reyez APRN [address] [place], [place] [id number] documented as of this encounter Visit Diagnoses Not on filedocumented in this encounter Care Teams Newspaper Delivery Counselor Relationship Specialty Start Date End Date Valentine Huntley APRN [address] [place] [address] PCP - General Nurse Practitioner 07/26/24 documented as of this encounter
--- OUTSIDE RECORDS SUMMARY | 2025-08-29 10:55 | XMS_ITS | Encounter Summary ---
Author Organization [facility] Address [address] [place] [id number] Care Team Providers Care Project Manager Industrial Name Role Phone Valentine Huntley APRN Primary Care Provider [phone] Reason for Visit * Reason Onset Date Comments SEIVERS - CALL BACK 07/26/2025 Encounter Details Date Type Department Care Team (Late st Contact Info) Description 07/26/[address] [facility] [address] [place] [address] An Reyez APRN [address] [place], [place] [id number] [facility] - CALL BACK Social History Tobacco Use Types Packs/Day Years [...] AM EDT documented as of this encounter Miscellaneous Notes * Telephone Encounter - Jonathan Sidhu CMA - 08/03/2025 8:44 AM EDT LVM FOR PATIENT TO RETURN CALL PER TELEPHONE ENCOUNTER, PATIENT NEEDED TO CALL [facility] TO SCHEDULE TITRATION STUDY. PLEASE CONFIRM IF PATIENT HAS SCHEDULED TITRATION STUDY. IF SO, WHEN? PATIENT WILL ALSO NEED TO RESCHEDULE APPT AROUND 09/16, WE WILL PROBABLY NOT HAVE RESULTS IF STUDY IS NOT COMPLETED BY 08/07 HUB OK TO RELAY * Telephone Encounter - Izzy Johnson RegSched Rep - 07/26/2025 9:45 AM EDT Caller: Ly Sidhu Relationship: Self Best call back number: [phone] What is the best time to reach you: ANY What was the call regarding: PATIENT RETURNING CALL FROM OFFICE. NO DOCUMENTATION IN CHART. PLEASE ADVISE Is it okay if the provider responds through MyChart: PLEASE CALL documented in this encounter Plan of Treatment Upcoming Encounters Date Type Department Care Team (Late st Contact Info) Description 10/18/2025 11:00 AM EST Office Visit [facility] [address] [place] [address] nA Reyez APRN [address] [place] [address] [place] [address] documented as of this encounter Visit Diagnoses Not on filedocumented in this encounter Care Teams Project Manager Industrial Relationship Specialty Start Date End Date Valentine Huntley APRN [facility] [place] [address] PCP - General Nurse Practitioner 07/26/24 documented as of this encounter
--- OUTSIDE RECORDS SUMMARY | 2025-08-29 10:55 | XMS_ITS | Clinical Summary ---
Author Organization [facility] Address [address] [place] [address] Care Team Providers Care Customer Service Specialist Name Role Phone Valentine Huntley APRN Primary Care Provider [phone] Immunizations Immunization Administration Dates Next Due Influenza, injectable, quadrivalent, preservativ e free 10/17/2016 Pneumococcal Polysaccharide PPV23 10/17/2016 Family History Medical History Relation Name Comments Cardiac disorder Other 1 Diabetes Other 2 Hypertension Other 3 Other cancer Other 4 Relation Name Status Comments Other 1 Other 2 Other 3 Other 4 Social History Tobacco Use Types Packs/Day Years Used Date Smoking Tobacco: Never Alcohol Use Standard Drinks/Week Comments No 0 (1 standard drink = 0.6 oz pur e alcohol) Comments Unknown Sex and Gender Information Value Date Recorded Sex Assigned at Not on file Legal Sex Female 8:47 PM EDT Gender Identity Not on file Sexual Orientation Not on file Last Filed Vital Signs Vital Sign Reading Time Taken Comments Blood Pressure - - Pulse - - Temperature - - Respiratory Rate - - Oxygen Saturation - - Inhaled Oxygen Concentration - - Weight 134 kg (296 lb 0.2 oz) 04/15/2020 2:02 PM EDT Height 160 cm (5' 3 ) 04/15/2020 2:02 PM EDT Body Mass Index 52.44 04/15/2020 2:02 PM EDT Plan of Treatment Not on file Care Teams Customer Service Specialist Relationship Specialty Start Date End Date Valentine Huntley APRN [address] [place] [address] PCP - General 04/11/21
--- OUTSIDE RECORDS SUMMARY | 2025-08-29 10:55 | XMS_ITS | Encounter Summary ---
Author Organization [facility] Address [address] [place] [address] Care Team Providers Care Ob Nurse Name Role Phone Valentine Huntley APRN Primary Care Provider [phone] Encounter Details Date Type Department Care Team (Late st Contact Info) Description 08/24/2025 Results Follow-Up [facility] [address] [place] [address] Izzy Wilks MA Social History Tobacco Use Types Packs/Day Years [...] encounter Miscellaneous Notes * Telephone Encounter - Veronique Washington RN - 08/24/2025 8:52 AM EDT Relayed message from An to pt and she verbalized understanding wit no questions voiced. * Telephone Encounter - Veroniqeu [place] RN - 08/24/2025 8:52 AM EDT ----- Message from An Reyez sent at 08/23/2025 4:16 PM EDT ----- Please call patient let her know I have reviewed her titration study. She remained on BiPAP therapywith the pressures of . I will send a prescription to her DME company to change her BiPAP settings. Please tell her to call the office if the settings feel too strong or if she needs anything else. ----- Message ----- From: Interface, Scans Incoming Sent: 08/23/2025 3:52 PM EDT To: An Reyez APRN documented in this encounter Plan of Treatment Upcoming Encounters Date Type Department Care Team (Late st Contact Info) Description 10/18/2025 11:00 AM EST Office Visit [facility] [address] [place] [address] An Reyez APRN [address] [place] [address] [place] [address] documented as of this encounter Visit Diagnoses Not on filedocumented in this encounter Care Teams Ob Nurse Relationship Specialty Start Date End Date Valentine Huntley APRN [address] [place] [id number] PCP - General Nurse Practitioner 07/26/24 documented as of this encounter
== END 2025-08-29 23:59 | disposition home or self-care (01) ==
LOC: RAD 10:24
PROVIDERS: PCP Nurse Practitioner Family; Visit Provider Nurse Practitioner Family
DX: Z12.31 Encounter for screening mammogram for malignant neoplasm of breast (principal); R92.323 Mammographic fibroglandular density, bilateral breasts
CPT/HCPCS: 77063; 77067